=== PATIENT | male | born 1955 | race Caucasian/White ===

== ENCOUNTER 2024-07-13 16:04 | Emergency (ER) | payer BC ==
[2024-07-13] MEDS ORDERED: ONDANSETRON 4 MG/2 ML VIAL ONE ×2 (19:15→23:44)
[2024-07-13] MEDS ORDERED: NA CHLORIDE 0.9% 1,000 ML ONE ×2 (19:15→23:44)
[2024-07-13] MEDS ORDERED: MORPHINE 4 MG/ML SYR ONE (19:15)
[2024-07-13] MEDS ORDERED: FAMOTIDINE 20 MG/2 ML VIAL IV ONE (19:15)
[2024-07-13 19:35] LABS: Absolute Basophils 0.1 K/uL (0-0.5); Absolute Eosinophils 0.1 K/uL (0-0.5); Absolute Lymphocytes (CBC) 1.4 K/uL (0.7-4.9); Absolute Monocytes 0.8 K/uL (0.1-1.3); Absolute Neutrophil 8.1 K/uL (1.8-8.0); Basophils % 0.6 % (0-1.3); Eosinophils % 0.8 % (0-4.4); Hematocrit 48.7 % (39.6-49.0); Hemoglobin 16.9 g/dL (13.6-17.9); Lymphocytes % 13.3 % (15.3-44.8); MCH 31.6 pg (27.0-35.0); MCHC 34.7 g/dL (32.0-36.0); Monocytes % 7.3 % (3.3-12.3); Nucleated Red Blood Cells % 0.1 % (0-0); Platelets 185 thou/uL (152-406); RBC Red Blood Cell Count 5.35 M/uL (4.33-5.43); Red Cell Distribution Width 13.3 % (12.1-15.2)
--- NOTE | 2024-07-13 19:39 | RAD REPORT ---
EXAMINATION: US Abdomen Exam Limited CLINICAL HISTORY: [facility] MAIN Y ABD PAIN Bed Name: IW4 COMPARISON: None. TECHNIQUE: Limited upper abdominal grayscale and color flow sonographic images. FINDINGS: Gallbladder: No abnormal wall thickening or pericholecystic fluid. No gallstones or sludge. Bile ducts: No intrahepatic or extrahepatic biliary dilatation. Common bile duct measures 3 mm. Liver: Visualized portions of the liver demonstrate normal echogenicity with no suspicious findings. Fluid: No ascites. IMPRESSION: No abnormalities on right upper quadrant ultrasound.
[2024-07-13 19:58] LABS: Albumin 3.6 g/dL (3.4-5.0); Anion Gap 8.5 mEq/L (5.0-15.0); Globulin 3.6 g/dL (2.3-3.5); Potassium 3.5 mEq/L (3.5-5.1); Protein, Total 7.2 g/dL (6.4-8.2)
--- NOTE | 2024-07-13 22:36 | RAD REPORT ---
EXAMINATION: CT Abdomen Pelvis W Contrast CLINICAL INDICATION: Male, 69 years old. ABD PAIN TECHNIQUE: CT abdomen and pelvis was performed, after the administration of IV contrast, as per [facility] protocol. Axial, sagittal and coronal reconstructions were obtained. One or more of the following dose reduction techniques were used: Automated exposure control, adjustment of the mA and k V according to patient size, and iterative reconstruction. Unless otherwise specified, incidental findings do not require dedicated imaging follow-up. COMPARISON: No prior exam. FINDINGS: LOWER CHEST: The visualized lung bases are clear. LIVER: Normal in size and contour. Ill-defined somewhat elongated foci of hypoattenuation, largest at the lower right lobe measuring 2.1 cm, with 2 additional adjacent foci on the order of 1 cm near the dome (axial image 20). These are not well characterized. BILIARY SYSTEM: No suspicious abnormalities. SPLEEN: Normal size. No focal lesion. PANCREAS: No mass, ductal dilation, or homero-pancreatic fluid. ADRENALS: Normal; no mass. KIDNEYS: Normal size and contour. No hydronephrosis. Bilateral cortical cysts largest measuring 4.1 c m at the right lower pole, and on the left measuring 3.5 cm at the upper pole URINARY BLADDER: Asymmetric regional wall thickening at the dome and lateral wall on the right, regio n which approximates the cecal wall. This also approximates the right internal inguinal ring.. This could relate to cystitis, concomitant to the ongoing colitis, versus morphologic abnormality related to the ongoing hernia or early diverticulum formation. GASTROINTESTINAL TRACT: Short segment of nodular nearly circumferential wall thickening involving the distal transverse colon nearly at the splenic flexure, measuring 5.7 cm in length. Small satellite soft tissue nodule measuring 12 mm along the medial adventitia, axial image 23 Proximal to this, the colon is dilated, with mild wall prominence and adventitial fat stranding, with an air-fluid level along the transverse colon. There is abrupt transition of large bowel caliber at the level of the seg mental nodular wall thickening. Normal caliber large bowel distal to the segment, with mild distal colonic diverticulosis. No evidence of free air, significant intra-abdominal free fluid, or abscess. APPENDIX: Appendix not visualized, but no inflammatory changes in region of appendix. LYMPH NODES: No lymphadenopathy. MUSCULOSKELETAL: No acute or suspicious osseous abnormality. ADDITIONAL FINDINGS: Marked prostatomegaly. IMPRESSION: Short segment of nodular wall thickening along the distal transverse colon, concerning for a strictur e that could be of malignant nature. Dilated large bowel proximal to the suggesting obstruction. Additionally, there is wall thickening of the more proximal large bowel with adjacent inflammatory ch anges concerning for concomitant infectious or inflammatory colitis. Abnormal appearance of the superior and lateral bladder wall on the right, may relate to concomitant cystitis, among other considerations, as detailed above. Ill-defined hypoattenuating foci within the right lobe of the liver as above. Possibility of metastat ic lesions are not entirely excluded. These can be further characterized by liver protocol CT or preferably MRI if clinically indicated. THIS REPORT CONTAINS FINDINGS THAT MAY BE CRITICAL TO PATIENT CARE. The findings were verbally commun icated via telephone to Dangelo Jung MD on 07/13/2024 10:28 PM.
--- NOTE | 2024-07-13 22:43 | ER ---
Nurse's Notes [facility] [place] Name: Oliver Castillo Age: 69 yrs Sex: Male : 1955 Arrival Date: 07/13/2024 Time: 16:04 Bed IW9 Private MD: Diagnosis: Transverse colon mass, transverse colon stricture, bowel obstruction, acute colitis Presentation: 07/13 16:35 Chief complaint: Patient states: for the past 3 weeks he has had abdominal cramping me1 that has worsened in the past 3-4 days. Pain is intermittent going from none to 10/10 but is more frequent recently. Denies fever. Denies n/v/d. Coronavirus screen: Vaccine status: Patient reports receiving the 2nd dose of the covid vaccine. Ebola Screen: No symptoms or risks identified at this time. Initial Sepsis Screen: Does the patient meet any 2 criteria? No. Patient's initial sepsis screen is negative. Does the patient have a suspected source of infection? No. Patient's initial sepsis screen is negative. Risk Assessment: Do you want to hurt yourself or someone else? Patient reports no desire to harm self or others. Onset of symptoms is unknown. 16:35 Method Of Arrival: Ambulatory me1 16:35 Acuity: AKIRA 3 me1 Historical: - Allergies: 16:43 No Known Allergies; me1 - PMHx: 16:43 Hypertensive disorder; me1 - PSHx: 16:43 None; me1 - Immunization history:: Adult Immunizations up to date. - Infectious Disease History:: Denies. - Social history:: Smoking status: Patient/guardian denies using tobacco, but has a distant history of tobacco abuse. - Family history:: not pertinent. Screenin:00 [facility] ED Fall Risk Assessment (Adult) History of falling in the last 3 months, ha1 including since admission No falls in past 3 months (0 pts) Confusion or Disorientation No (0 pts) Intoxicated or Sedated No (0 pts) Impaired Gait No (0 pts) Mobility Assist Device Used No (0 pt) Altered Elimination No (0 pt) Score/Fall Risk Level 0 - 2 = Low Risk Oriented to surroundings, Maintained a safe environment, Educated pt \T\ family on fall prevention, incl call for assistance when getting out of bed, Hourly rounding (assess needs \T\ fall precautionary measures) done. Abuse screen: Denies threats or abuse. Denies injuries from another. Nutritional screening: No deficits noted. Tuberculosis screening: No symptoms or risk factors identified. Assessment: 20:00 General: Appears uncomfortable, Behavior is cooperative. Pain: Complains of pain in ha1 abdomen Pain currently is 7 out of 10 on a pain scale. Quality of pain is described as aching, crampy. Neuro: Level of Consciousness is awake, alert, obeys commands, Oriented to person, place, time, situation. Cardiovascular: Capillary refill < 3 seconds Patient's skin is warm and dry. Respiratory: Airway is patent Respiratory effort is even, unlabored, Respiratory pattern is regular, symmetrical. GI: Abdomen is round non-distended, obese, Bowel sounds present X 4 quads. Abd is soft and non tender X 4 quads. 22:00 Reassessment: Patient and/or family updated on plan of care and expected duration. Pain ha1 level reassessed. Patient is alert, oriented x 3, equal unlabored respirations, skin warm/dry/pink. Patient states feeling better. Patient states symptoms have improved. 22:59 Reassessment: Patient and/or family updated on plan of care and expected duration. Pain ha1 level reassessed. Patient is alert, oriented x 3, equal unlabored respirations, skin warm/dry/pink. Patient states symptoms have improved. Vital Signs: 16:35 BP 181 / 114; Pulse 50; Resp 17; Temp 98.5; Pulse Ox 98% ; Weight 140.61 kg; Height 6 me1 ft. 4 in. ; Pain 4/10; 22:59 BP 193 / 104; Pulse 81; Resp 18 S; Pulse Ox 100% on R/A; ha1 23:55 BP 161 / 92; Pulse 81; Resp 17 S; Pulse Ox 98% on R/A; 1 07/14 00:20 BP 154 / 91; Pulse 78; Resp 16; Pulse Ox 98% on R/A; 1 07/13 16:35 Body Mass Index 37.73 (140.61 kg, 193.04 cm) [facility] 07/13 16:35 Pain Scale: Adult [facility] [place] Coma Score: 07/13 23:31 Eye Response: spontaneous(4). Motor Response: obeys commands(6). Verbal Response: sp4 oriented(5). Total: 15. ED Course: 16:09 Patient arrived in ED. cj3 16:39 Romero Thorne MD is Attending Physician. abbey 16:43 Triage completed. me1 16:43 Arm band placed on Patient placed in waiting room. me1 17:48 Abdomen Limited US In Process Unspecified. EDMS 19:09 Attending Physician role handed off by Romero Thorne MD sp4 19:09 Dangelo Jung MD is Attending Physician. sp4 19:13 Radiology exam delayed due to lab results not completed at this time. IV insertion sm9 attempt and/or patient not having appropriate IV at this time. 19:20 Patient has correct armband on for positive identification. Placed in gown. Bed in low ha1 position. Call light in reach. Side rails up X 1. 19:39 CMP Sent. ha1 19:39 Lipase Sent. ha1 20:55 CT Abd/Pelvis - IV Contrast Only In Process Unspecified. EDMS 23:35 Danni Cam, RN is Primary Nurse. ha1 07/14 01:00 No provider procedures requiring assistance completed. ha1 01:00 Patient transferred, IV remains in place. ha1 Administered Medications: 07/13 19:30 Drug: Famotidine IVP 20 mg IVP once; dilute with 10 mL 0.9% NaCl; give over 2 minutes ha Route: IVP; Site: right antecubital; 19:30 Drug: NS 0.9% IV 1000 ml IV at 1 bolus Per protocol; to be given as a bolus over 60 ha1 minutes Route: IV; Rate: 1 bolus; Site: right antecubital; 21:21 Follow up: Response: No adverse reaction; IV Status: Completed infusion; IV Intake: me1 1000ml 19:32 Drug: Ondansetron IVP 4 mg IVP once; over 2 minutes Route: IVP; Site: right antecubital;1 19:35 Drug: morphine IVP or IV 4 mg IVP once over 4 mins Route: IVP; Infused Over: 4 mins; ha1 Site: right antecubital; 23:35 Drug: hydrALAZINE IVP 20 mg IVP once Route: IVP; Site: right antecubital; 1 07/14 00:20 Follow up: Response: No adverse reaction; Blood pressure is lowered ha1 07/13 23:38 Drug: metoCLOPramide IVP 10 mg IVP once; over 15 mins Route: IVP; Site: right ha1 antecubital; 07/14 00:00 Follow up: Response: No adverse reaction; Marked relief of symptoms [facility] 07/13 23:40 Drug: Ondansetron IVP 4 mg IVP once; over 2 minutes Route: IVP; Site: right antecubital;[facility] 07/14 00:00 Follow up: Response: No adverse reaction; Marked relief of symptoms [facility] 07/13 23:53 Drug: NS 0.9% IV 1000 ml IV at 125 ml/hr once; to be given as a bolus over [address] [facility] Route: IV; Rate: 125 ml/hr; Site: right antecubital; 07/14 01:00 Follow up: Response: No adverse reaction; IV Status: Infusion continued upon transfer [facility] 00:48 Drug: Rocephin - Rocephin (cefTRIAXone) IVPB 1 grams IVPB once over 30 mins; (mix in 50 ha1 mL NS) Route: IVPB; Infused Over: 30 mins; Site: right antecubital; 01:00 Follow up: Response: No adverse reaction; IV Status: Completed infusion [facility] 00:54 Drug: metroNIDAZOLE IVPB 500 mg 100 ml IVPB at 200 ml/hr once over 30 mins Volume: 100 ha1 ml; Route: IVPB; Rate: 200 ml/hr; Infused Over: 30 mins; Site: right antecubital; 01:00 Follow up: Response: No adverse reaction; IV Status: Infusion continued upon transfer [facility] Medication: 01:00 VIS not applicable for this client. [facility] Intake: 07/13 21:21 IV: 1000ml; Total: 1000ml. vt1 Outcome: 22:42 ER care complete, transfer ordered by MD. eli 07/14 01:20 Condition: stable [facility] 01:20 Transferred by ground EMS to [facility], Transfer form [facility] completed. X-rays sent w/ patient. 01:20 Instructed on the need for transfer, Demonstrated understanding of instructions, 01:28 Patient left the ED. bm8 Signatures: Dispatcher [employer] EDRomero Mooney MD MD cha Ayala, Heidy, RN RN [facility] Dangelo Jung MD MD sp4 Nikki Billy, RN RN me1 Laura De Leon sm9 Patricio York RN RN bm8 Diana Roman cj3
--- NOTE | 2024-07-13 22:43 | EDPHYS ---
Physician Documentation [facility] Name: Oliver Castillo Age: 69 yrs Sex: Male : 1955 Arrival Date: 07/13/2024 Time: 16:04 Bed IW9 Private MD: ED Physician Dangelo Jung HPI: 07/13 19:09 This 69 yrs old Male presents to ER via Ambulatory with complaints of sp4 Abdominal Pain. 23:31 69-year-old male with persistent abdominal discomfort for 3 weeks. Patient had moderate sp4 abdominal discomfort for 3 weeks associated with nausea especially after food consumption. Patient reports that in the last 3 days pain has intensified he denied passing gas in the last 48 hours and reports he could not eat anything significant for the past 3 days. Also reported some gurgling in his abdomen. No prior abdominal surgery.. Historical: - Allergies: 16:43 No Known Allergies; me1 - PMHx: 16:43 Hypertensive disorder; me1 - PSHx: 16:43 None; me1 - Immunization history:: Adult Immunizations up to date. - Infectious Disease History:: Denies. - Social history:: Smoking status: Patient/guardian denies using tobacco, but has a distant history of tobacco abuse. - Family history:: not pertinent. ROS: 23:31 Constitutional: Negative for fever, chills, and weight loss, positive abdominal pain sp4 positive nausea negative vomiting negative melena 23:31 All other systems are negative, Exam: 23:31 Constitutional: This is a well developed, well nourished patient who is awake, alert, sp4 and in no acute distress. Head/Face: Normocephalic, atraumatic. Eyes: Pupils equal round and reactive to light, extra-ocular motions intact. Lids and lashes normal. Conjunctiva and sclera are not injected. Cornea within normal limits. Periorbital areas with no swelling, redness, or edema. ENT: Nares patent. No nasal discharge, no septal abnormalities noted. Tympanic membranes are normal and external auditory canals are clear. Oropharynx with no redness, swelling, or masses, exudates, or evidence of obstruction, uvula midline. Mucous membranes moist. Neck: Trachea midline, no thyromegaly or masses palpated, and no cervical lymphadenopathy. Supple, full range of motion without nuchal rigidity, or vertebral point tenderness. Chest/axilla: Normal chest wall appearance and motion. Nontender with no deformity. No lesions are appreciated. Cardiovascular: Regular rate and rhythm with a normal S1 and S2. No gallops, murmurs, or rubs. Normal PMI, no JVD. No pulse deficits. Respiratory: Lungs have equal breath sounds bilaterally, clear to auscultation and percussion. No rales, rhonchi or wheezes noted. No increased work of breathing, no retractions or nasal flaring. Abdomen/GI: Soft, with normal bowel sounds. No distension or tympany. No guarding , bilateral lower abdominal tenderness without rebound Back: No spinal tenderness. No costovertebral tenderness. Skin: Warm, dry with normal turgor. Normal color with no rashes, no lesions, and no evidence of cellulitis. MS/ Extremity: Pulses equal, no cyanosis. Neurovascular intact. Full, normal range of motion. Neuro: Awake and alert, GCS 15, oriented to person, place, time, and situation. Cranial nerves II-XII grossly intact. Motor strength 5/5 in all extremities. Sensory grossly intact. Psych: Awake, alert, with orientation to person, place and time. Behavior, mood, and affect are within normal limits Vital Signs: 16:35 BP 181 / 114; Pulse 50; Resp 17; Temp 98.5; Pulse Ox 98% ; Weight 140.61 kg; Height 6 me1 ft. 4 in. ; Pain 4/10; 22:59 BP 193 / 104; Pulse 81; Resp 18 S; Pulse Ox 100% on R/A; ha1 23:55 BP 161 / 92; Pulse 81; Resp 17 S; Pulse Ox 98% on R/A; 1 07/14 00:20 BP 154 / 91; Pulse 78; Resp 16; Pulse Ox 98% on R/A; 1 07/13 16:35 Body Mass Index 37.73 (140.61 kg, 193.04 cm) [facility] [place] [place] 07/13 16:35 Pain Scale: Adult [facility] [place] Coma Score: 07/13 23:31 Eye Response: spontaneous(4). Motor Response: obeys commands(6). Verbal Response: sp4 oriented(5). Total: 15. MDM: 16:39 Medical Screening Exam initiated abbey 20:28 ED course: Exam Date: 07/13/24 EXAMINATION: US Abdomen Exam Limited CLINICAL HISTORY: sp4 [facility] MAIN Y ABD PAIN Bed Name: IW4 COMPARISON: None. TECHNIQUE: Limited upper abdominal grayscale and color flow sonographic images. FINDINGS: Gallbladder: No abnormal wall thickening or pericholecystic fluid. No gallstones or sludge. Bile ducts: No intrahepatic or extrahepatic biliary dilatation. Common bile duct measures 3 mm. Liver: Visualized portions of the liver demonstrate normal echogenicity with no suspicious findings. Fluid: No ascites. IMPRESSION: No abnormalities on right upper quadrant ultrasound.. 22:41 ED course: CT - IMPRESSION: Short segment of nodular wall thickening along the distal sp4 transverse colon, concerning for a stricture that could be of malignant nature. Dilated large bowel proximal to the suggesting obstruction. Additionally, there is wall thickening of the more proximal large bowel with adjacent inflammatory changes concerning for concomitant infectious or inflammatory colitis. Abnormal appearance of the superior and lateral bladder wall on the right, may relate to concomitant cystitis, among other considerations, as detailed above. Ill-defined hypoattenuating foci within the right lobe of the liver as above. Possibility of metastatic lesions are not entirely excluded. These can be further characterized by liver protocol CT or preferably MRI if clinically indicated. THIS REPORT CONTAINS FINDINGS THAT MAYBE CRITICAL TO PATIENT CARE. The findings were verbally communicated via telephone to Dangelo Jung MD on 07/13/2024 10:28 PM.. 22:52 ED course: CT report - GASTROINTESTINAL TRACT: Short segment of nodular nearly sp4 circumferential wall thickening involving the distal transverse colon nearly at the splenic flexure, measuring 5.7 cm in length. Small satellite soft tissue nodule measuring 12 mm along the medial adventitia, axial image 23 Proximal to this, the colon is dilated, with mild wall prominence and adventitial fat stranding, with an air-fluid level along the transverse colon. There is abrupt transition of large bowel caliber at the level of the segmental nodular wall thickening. Normal caliber large bowel distal to the segment, with mild distal colonic diverticulosis. No evidence of free air, significant intra-abdominal free fluid, or abscess. APPENDIX: Appendix not visualized, but no inflammatory changes in region of appendix. LYMPH NODES: No lymphadenopathy. MUSCULOSKELETAL: No acute or suspicious osseous abnormality. ADDITIONAL FINDINGS: Marked prostatomegaly. . 23:34 Differential diagnosis: appendicitis, bowel obstruction, cholecystitis, diverticulitis, sp4 gastritis, gastroesophageal reflux disease, GI Bleed, Hepatitis, pancreatitis. Data reviewed: vital signs, nurses notes, lab test result(s), radiologic studies. Consideration of Admission/Observation Escalation of care including admission/observation considered. Management of patient was discussed with the following: Senior C Software Developer: Dr. Griffith at [facility]. ED course: Positive for colonic obstruction secondary to stricture possibly colonic mass. Positive for signs of colitis. Patient will be given IV Rocephin and Flagyl IV fluids. Also hypertension was managed with IV hydralazine. Patient stable for transfer to [place] by ground EMS.. 07/13 16:40 Order name: CBC with Diff; Complete Time: 20:27 [facility] 07/13 16:40 Order name: CMP; Complete Time: 20:27 [facility] 07/13 16:40 Order name: Lipase; Complete Time: 20:27 [facility] 07/13 16:40 Order name: Abdomen Limited US; Complete Time: 20:27 [facility] 07/13 16:40 Order name: CT Abd/Pelvis - IV Contrast Only [facility] 07/13 16:40 Order name: IV Saline Lock; Complete Time: 19:39 [facility] 07/13 16:40 Order name: Labs collected and sent; Complete Time: 19:39 [facility] 07/13 16:40 Order name: EKG - Nurse/Tech; Complete Time: 20:04 [facility] 07/13 23:02 Order name: NPO; Complete Time: 23:36 sp4 Administered Medications: 19:30 Drug: Famotidine IVP 20 mg IVP once; dilute with 10 mL 0.9% NaCl; give over 2 minutes ha1 Route: IVP; Site: right antecubital; 19:30 Drug: NS 0.9% IV 1000 ml IV at 1 bolus Per protocol; to be given as a bolus over 60 ha1 minutes Route: IV; Rate: 1 bolus; Site: right antecubital; 21:21 Follow up: Response: No adverse reaction; IV Status: Completed infusion; IV Intake: me1 1000ml 19:32 Drug: Ondansetron IVP 4 mg IVP once; over 2 minutes Route: IVP; Site: right antecubital;ha1 19:35 Drug: morphine IVP or IV 4 mg IVP once over 4 mins Route: IVP; Infused Over: 4 mins; ha1 Site: right antecubital; 23:35 Drug: hydrALAZINE IVP 20 mg IVP once Route: IVP; Site: right antecubital; [facility] 07/14 00:20 Follow up: Response: No adverse reaction; Blood pressure is lowered [facility] 07/13 23:38 Drug: metoCLOPramide IVP 10 mg IVP once; over 15 mins Route: IVP; Site: right ha1 antecubital; 07/14 00:00 Follow up: Response: No adverse reaction; Marked relief of symptoms [facility] 07/13 23:40 Drug: Ondansetron IVP 4 mg IVP once; over 2 minutes Route: IVP; Site: right antecubital;[facility] 07/14 00:00 Follow up: Response: No adverse reaction; Marked relief of symptoms [facility] 07/13 23:53 Drug: NS 0.9% IV 1000 ml IV at 125 ml/hr once; to be given as a bolus over 60 minutes [facility] Route: IV; Rate: 125 ml/hr; Site: right antecubital; 07/14 01:00 Follow up: Response: No adverse reaction; IV Status: Infusion continued upon transfer [facility] 00:48 Drug: Rocephin - Rocephin (cefTRIAXone) IVPB 1 grams IVPB once over 30 mins; (mix in 50 ha1 mL NS) Route: IVPB; Infused Over: 30 mins; Site: right antecubital; 01:00 Follow up: Response: No adverse reaction; IV Status: Completed infusion [facility] 00:54 Drug: metroNIDAZOLE IVPB 500 mg 100 ml IVPB at 200 ml/hr once over 30 mins Volume: 100 ha1 ml; Route: IVPB; Rate: 200 ml/hr; Infused Over: 30 mins; Site: right antecubital; 01:00 Follow up: Response: No adverse reaction; IV Status: Infusion continued upon transfer ha Disposition Summary: 07/13/24 22:42 Transfer Ordered Notes: Reason: Higher level of care sp4 Condition: Fair sp4 Problem: new sp4 Symptoms: are unchanged sp4 Transfer Location: [facility](07/13/24 23:36) sp4 Accepting Physician: [facility] General Surgeon (07/14/24 01:28) bm8 Diagnosis - Transverse colon mass, transverse colon stricture, bowel obstruction, acute colitis sp4 Forms: - Medication Reconciliation Form sp4 - SBAR form sp4 Signatures: Dispatcher [employer] EDMS Romero Thorne MD MD cha Ayala, Heidy, RN RN ha1 Dangelo Jung MD MD sp4 Nikki Billy, RN RN me1 Patricio York, RN RN bm8 Corrections: (The following items were deleted from the chart) 07/13 16:41 16:41 Abdomen Limited+US.RAD.BRZ ordered. EDMS EDMS 16: 16:41 Abdomen Pelvis W Con+CT.RAD.BRZ ordered. EDMS EDMS 23:36 22:42 [facility] sp4 sp4 23:36 22:42 [facility] sp4 sp4 07/14 01:28 07/13 23:36 [facility] General Surgeon sp4 bm8
[2024-07-13] MEDS ORDERED: METOCLOPRAMIDE 10 MG/2mL INJ ONE (23:44)
[2024-07-13] MEDS ORDERED: HYDRALAZINE HCL 20 MG/ML VIAL ONE (23:44)
[2024-07-14] MEDS ORDERED: CEFTRIAXONE 1000 MG/VIAL ONE (00:47)
[2024-07-14] MEDS ORDERED: METRONIDAZOLE 500mg IVPB 500 MG/100 ML BAG IV ONE (00:48)
[2024-07-14 02:18] VITALS: TEMP 98.2
[2024-07-14 02:26] VITALS: BP 145/73; O2SAT 96
--- NOTE | 2024-07-15 12:21 | EKG ---
Test Date: 2024-07-13 Test Time: 19:56:56 Cook Relief: TERRI MEASUREMENT RESULTS: Intervals: Rate: 75 CT: 152 QRSD: 80 QT: 396 QTc: 442 [place]: P: 44 CT: 152 QRS: 32 T: 263 INTERPRETIVE STATEMENTS: Sinus rhythm with frequent premature ventricular complexes and premature atrial complexes Nonspecific ST and T wave abnormality Abnormal ECG No previous ECG available for comparison Electronically Signed On 07-15-24 12:18:10 CDT by Yong Srivastava
== END 2024-07-14 01:28 | disposition short-term general hospital (02) ==
LOC: ER 16:04
DX: K56.699 Other intestinal obstruction unspecified as to partial versus complete obstruction (principal); K52.9 Noninfective gastroenteritis and colitis, unspecified; K63.89 Other specified diseases of intestine; I10 Essential (primary) hypertension
CPT/HCPCS: 96361; 93005; 85025; 36415; 83690; 80053; 74177; 76705; 96375; 96374; 99285; Q9967; J0360; J2765; J2405 ×2; J7030 ×2; J0696